=== PATIENT | male | born 1945 | race Caucasian/White ===

== ENCOUNTER 2022-01-06 17:18 | Observation (INO) ==
[2022-01-06] MEDS ORDERED: DILTIAZEM 50 MG/10 ML VIAL IV STA (18:01)
[2022-01-06] MEDS ORDERED: ASPIRIN 325 MG TABLET PO STA (18:01)
[2022-01-06] MEDS ORDERED: SODIUM CHLORIDE 0.9% 500 ML IV STA (18:01)
[2022-01-06] MEDS ORDERED: DILTIAZEM 25 MG/5 ML VIAL IV ONE (18:01)
[2022-01-06 18:09] LABS: Basophils # 0.1 10*3/uL (0.0-0.2); Basophils % 0.6 % (0.0-0.8); Eosinophils # 0.2 10*3/uL (0.0-0.87); Eosinophils % 1.4 % (0.00-10.9); Hematocrit 45.4 VOL% (42.0-52.0); Hemoglobin 14.8 GM/DL (14.0-18.0); Immature Granulocytes % 0.6 %; Immature Granulocytes Absolute 0.07 #; Lymphocytes % 7.8 % (21.2-54.2); Mean Corpuscular HGB Conc 32.6 GM/DL (32-36); Mean Corpuscular Volume 95.8 FL (87-102); Mean Platelet Volume 9.8 FL (9.6-12.0); Monocytes % 6.7 % (1.7-12.7); Neutrophils % 82.9 % (38.7-73.9); Platelet Count 364 T/CUMM (130-400); Red Blood Count 4.74 MC/CUMM (3.8-5.5); Red Cell Distribution Width 13.8 % (9.3-17.3); White Blood Count 12.5 T/CUMM (4-12)
[2022-01-06 18:16] LABS: PT Patient Result 10.9 SECS (10.5-12.0)
[2022-01-06 18:31] LABS: Albumin 2.7 G/DL (3.4-5.0); Bilirubin,Total 1.4 MG/DL (0.20-1.00); Calcium 8.7 MG/DL (8.5-10.1); Osmolality,Calculated 275.8 MOS/KG (273-304); Potassium 4.3 MMOL/L (3.5-5.1); Thyroid Stimulating Hormone 1.39 uIU/ml (0.358-3.74); Total Protein 6.7 G/DL (6.4-8.2)
[2022-01-06] MEDS ORDERED: FUROSEMIDE 20 MG/2 ML VIAL IV STA (18:37)
[2022-01-06] MEDS ORDERED: ENOXAPARIN 100 MG/ML SYRINGE SUBCUT STA (18:38)
[2022-01-06] MEDS ORDERED: ENOXAPARIN 60 MG/0.6 ML SYRINGE SUBCUT STA (18:39)
[2022-01-06] MEDS ORDERED: FUROSEMIDE 40 MG/4 ML VIAL IV STA (18:40)
[2022-01-06] MEDS ORDERED: ACETAMINOPHEN 325 MG TABLET PO PRN (19:14)
[2022-01-06] MEDS ORDERED: DEXTROSE 10% 250 ML BAG IV PRN (19:14)
[2022-01-06] MEDS ORDERED: ONDANSETRON 4 MG/2 ML VIAL IV PRN (19:14)
[2022-01-06] MEDS ORDERED: GLUCAGON 1 MG VIAL IM PRN (19:14)
[2022-01-06 20:02] LABS: Bilirubin,Urine Negative (Negative); Blood, Urine Negative (Negative); Glucose,Urine (UA) Negative (Negative); Ketones,Urine Negative (Negative); Nitrite,Urine Negative (Negative); Protein,Urine Negative; Urine Appearance Clear (Clear); Urine Color Yellow (Yellow); Urine Urobilinogen 0.2 EU/DL (<2.0)
[2022-01-06 20:11] LABS: Barbiturates Screen,Urine Negative (Negative); Benzodiazepines Screen,Urine Negative (Negative); Cannabinoid Screen,Urine Negative (Negative); Opiate Screen,Urine Negative (Negative); Phencyclidine Screen,Urine Negative (Negative)
[2022-01-06 20:17] LABS: Bacteria,Urine Occasional /HPF (Few); Hyaline Casts,Urine 1 /LPF (0-3); Mucus,Urine Occasional /LPF (Occasional); RBC,Urine 10 /HPF (0-4)
[2022-01-06] MEDS: LACTATED RINGERS 1,000 ML IV SCH (20:52)
[2022-01-06] MEDS ORDERED: DILTIAZEM 30 MG TABLET PO SCH (21:00)
[2022-01-06] MEDS: ALBUTEROL 2.5 MG/3 ML NEB RESP TX SCH (22:07)
[2022-01-07 01:40] LABS: Basophils # 0.1 10*3/uL (0.0-0.2); Basophils % 0.8 % (0.0-0.8); Eosinophils # 0.2 10*3/uL (0.0-0.87); Eosinophils % 2.3 % (0.00-10.9); Hematocrit 39.2 VOL% (42.0-52.0); Hemoglobin 13.1 GM/DL (14.0-18.0); Immature Granulocytes % 0.9 %; Immature Granulocytes Absolute 0.09 #; Lymphocytes % 10.3 % (21.2-54.2); Mean Corpuscular HGB Conc 33.4 GM/DL (32-36); Mean Corpuscular Volume 93.8 FL (87-102); Mean Platelet Volume 9.2 FL (9.6-12.0); Monocytes % 8.4 % (1.7-12.7); Neutrophils % 77.3 % (38.7-73.9); Platelet Count 333 T/CUMM (130-400); Red Blood Count 4.18 MC/CUMM (3.8-5.5); Red Cell Distribution Width 14.1 % (9.3-17.3)
[2022-01-07 02:48] LABS: Albumin 2.1 G/DL (3.4-5.0); Calcium 7.8 MG/DL (8.5-10.1); Osmolality,Calculated 283.4 MOS/KG (273-304); Potassium 3.7 MMOL/L (3.5-5.1); Risk Ratio 3.4; Total Protein 5.9 G/DL (6.4-8.2); VLDL Cholesterol 16.8 MG/DL
[2022-01-07] MEDS: ALBUTEROL 2.5 MG/3 ML NEB RESP TX SCH ×3 (06:46→11:08)
[2022-01-07] MEDS ORDERED: APIXABAN 5 MG TABLET PO SCH ×2 (09:00)
[2022-01-07] MEDS ORDERED: PANTOPRAZOLE 40 MG TABLET PO SCH (09:00)
[2022-01-07] MEDS ORDERED: ASPIRIN 325 MG TABLET PO SCH (09:00)
[2022-01-07] MEDS ORDERED: METOPROLOL TARTRATE 25 MG TABLET PO SCH (09:00)
[2022-01-07] MEDS ORDERED: DILTIAZEM CD 120 MG CAPSULE PO SCH (09:00)
[2022-01-07] MEDS ORDERED: ENOXAPARIN 40 MG/0.4 ML SYRINGE SUBCUT SCH (09:00)
[2022-01-07] MEDS: LACTATED RINGERS 1,000 ML IV SCH (10:30)
[2022-01-07 12:13] VITALS: BP 122/67
[2022-01-08] MEDS ORDERED: ASPIRIN EC 81 MG TABLET PO SCH (09:00)
== END 2022-01-07 12:53 | disposition home or self-care (01) ==
LOC: N.EDINP 17:18 → N.ED 17:18 → N.5E 21:14
PROVIDERS: ADMIT Internal Medicine; ATTEND Internal Medicine

== ENCOUNTER 2022-07-09 00:09 | Inpatient (IN) ==
[2022-07-09] MEDS ORDERED: ONDANSETRON 4 MG/2 ML VIAL IV STA (01:04)
[2022-07-09] MEDS ORDERED: methylPREDNISolone SOD SUC 125 MG/2 ML VIAL IV STA (01:04)
[2022-07-09] MEDS ORDERED: ALBUTEROL/IPRATROPIUM 3 ML NEB RESP TX STA (01:04)
[2022-07-09 01:30] LABS: Arterial Base Excess iSTAT 3 MMOL/L (-2.5-2.5); Arterial Bicarbonate iSTAT 26.5 MMOL/L (20-26); Arterial O2 Saturation iSTAT 90 % (95-100); Arterial PCO2 iSTAT 36 MM HG (35-48); Arterial PO2 iSTAT 53 MM HG (80-95); Arterial Total CO2 iSTAT 28 MMO/L (23-27); Arterial pH iSTAT 7.472 (7.35-7.45)
[2022-07-09 01:52] LABS: Basophils % 0.1 % (0.0-0.8); Hematocrit 41.5 VOL% (42.0-52.0); Hemoglobin 13.9 GM/DL (14.0-18.0); Immature Granulocytes % 0.9 %; Immature Granulocytes Absolute 0.25 #; Lymphocytes # 0.4 10*3/uL (1.4-4.0); Lymphocytes % 1.4 % (21.2-54.2); Mean Corpuscular HGB Conc 33.5 GM/DL (32-36); Mean Corpuscular Volume 88.9 FL (87-102); Mean Platelet Volume 9.1 FL (9.6-12.0); Monocytes # 1.6 10*3/uL (0.11-0.8); Monocytes % 5.7 % (1.7-12.7); Neutrophils % 91.9 % (38.7-73.9); Platelet Count 501 T/CUMM (130-400); Red Blood Count 4.67 MC/CUMM (3.8-5.5); Red Cell Distribution Width 14.8 % (9.3-17.3); White Blood Count 27.5 T/CUMM (4-12)
[2022-07-09] MEDS ORDERED: PIPERACILLIN/TAZOBACTAM 3,375 MG in SODIUM CHLORIDE 0.9% 100 ML IV STA (02:03)
[2022-07-09 02:11] LABS: Platelet Estimate Increased; Total Cells Counted 100
[2022-07-09 02:21] LABS: Alanine Aminotransferase < 9 U/L (16-61); Albumin 1.9 G/DL (3.4-5.0); Alkaline Phosphatase 141 U/L (45-117); Aspartate Amino Transferase 14 U/L (0-37); Blood Urea Nitrogen 26 MG/DL (7-18); Calcium 9.1 MG/DL (8.5-10.1); Carbon Dioxide 24 MMOL/L (21-32); Chloride 94 MMOL/L (98-107); Glucose 95 MG/DL (74-106); Osmolality,Calculated 262.9 MOS/KG (273-304); Potassium 3.6 MMOL/L (3.5-5.1); Sodium 129 MMOL/L (136-145); Total Protein 6.9 G/DL (6.4-8.2)
[2022-07-09] MEDS ORDERED: ZALEPLON 5 MG CAPSULE PO PRN (02:25)
[2022-07-09] MEDS ORDERED: ACETAMINOPHEN 325 MG TABLET PO PRN (02:25)
[2022-07-09] MEDS ORDERED: ONDANSETRON 4 MG/2 ML VIAL IV PRN (02:25)
[2022-07-09] MEDS ORDERED: ENOXAPARIN 40 MG/0.4 ML SYRINGE SUBCUT SCH (02:30)
[2022-07-09] MEDS ORDERED: SODIUM CHLORIDE 0.9% 1,000 ML IV SCH (04:00)
[2022-07-09] MEDS: AZITHROMYCIN INJ 500 MG in SODIUM CHLORIDE 0.9% 250 ML IV SCH (04:24)
[2022-07-09] MEDS: ALBUTEROL/IPRATROPIUM 3 ML NEB RESP TX SCH ×2 (07:00→18:57)
[2022-07-09 07:38] LABS: Bacteria,Urine Many /HPF (Few); Bilirubin,Urine Negative (Negative); Blood, Urine Trace mg/dL (Negative); Glucose,Urine (UA) Negative (Negative); Ketones,Urine 40 mg/dL (Negative); Mucus,Urine Few /LPF (Occasional); Nitrite,Urine Negative (Negative); Protein,Urine Trace mg/dL (Negative); RBC,Urine 1 /HPF (0-4); Urine Appearance Clear (Clear); Urine Color Yellow (Yellow); Urine pH 5.5 (4.5-8.0)
[2022-07-09] MEDS: PANTOPRAZOLE 40 MG TABLET PO SCH (09:33)
[2022-07-09] MEDS ORDERED: cefTRIAXone 1,000 MG in SODIUM CHLORIDE 0.9% 100 ML IV SCH (10:00)
[2022-07-09 10:26] LABS: Total Protein (Chem) 6.9 G/DL (6.4-8.3)
[2022-07-09 10:40] LABS: Albumin (SPE) 2.9 G/DL (3.2-5.3); Alpha 1 (SPE) 0.3 G/DL (0.1-0.4); Alpha 1 (SPE) Rel % 4.3 %; Alpha 2 (SPE) 1.1 G/DL (0.4-1.0); Alpha 2 (SPE) Rel % 15.4 %; Beta (SPE) 0.9 G/DL (0.5-1.1); Beta (SPE) Rel % 13.5 %; Gamma (SPE) 1.7 G/DL (0.7-1.7); Gamma (SPE) Rel % 24.8 %
[2022-07-09] MEDS: PIPERACILLIN/TAZOBACTAM 3,375 MG in SODIUM CHLORIDE 0.9% 100 ML IV SCH ×2 (13:02→20:55)
[2022-07-09] MEDS: DILTIAZEM 30 MG TABLET PO SCH (20:54)
[2022-07-09] MEDS: APIXABAN 2.5 MG TABLET PO SCH (20:54)
[2022-07-10] MEDS: ALBUTEROL/IPRATROPIUM 3 ML NEB RESP TX SCH ×4 (00:53→19:05)
[2022-07-10] MEDS: PIPERACILLIN/TAZOBACTAM 3,375 MG in SODIUM CHLORIDE 0.9% 100 ML IV SCH ×3 (04:45→20:04)
[2022-07-10 06:01] LABS: Basophils % 0.1 % (0.0-0.8); Hematocrit 36.5 VOL% (42.0-52.0); Hemoglobin 11.9 GM/DL (14.0-18.0); Immature Granulocytes % 1.4 %; Immature Granulocytes Absolute 0.32 #; Lymphocytes # 0.2 10*3/uL (1.4-4.0); Mean Corpuscular HGB Conc 32.6 GM/DL (32-36); Mean Corpuscular Volume 90.6 FL (87-102); Mean Platelet Volume 9.5 FL (9.6-12.0); Monocytes # 0.9 10*3/uL (0.11-0.8); Monocytes % 3.9 % (1.7-12.7); Neutrophils % 93.6 % (38.7-73.9); Platelet Count 486 T/CUMM (130-400); Red Blood Count 4.03 MC/CUMM (3.8-5.5); Red Cell Distribution Width 15.2 % (9.3-17.3); White Blood Count 23.4 T/CUMM (4-12)
[2022-07-10 06:22] LABS: Calcium 8.7 MG/DL (8.5-10.1); Potassium 3.2 MMOL/L (3.5-5.1)
[2022-07-10 06:23] LABS: Lymphocytes 2 % (20-55); Platelet Estimate Adequate; Total Cells Counted 100
[2022-07-10] MEDS: POTASSIUM CHLORIDE 20 MEQ TABLET PO PRN ×4 (08:15→16:09)
[2022-07-10] MEDS: AZITHROMYCIN INJ 500 MG in SODIUM CHLORIDE 0.9% 250 ML IV SCH (08:15)
[2022-07-10] MEDS: PANTOPRAZOLE 40 MG TABLET PO SCH (08:15)
[2022-07-10] MEDS: APIXABAN 2.5 MG TABLET PO SCH ×2 (08:15→20:01)
[2022-07-10] MEDS: ASPIRIN CHEW 81 MG TABLET PO SCH (08:15)
[2022-07-10] MEDS: THEOPHYLLINE ER (24 HR) 400 MG CAPSULE PO SCH (08:15)
[2022-07-10] MEDS: DILTIAZEM 30 MG TABLET PO SCH ×2 (08:15→20:01)
[2022-07-11] MEDS: ALBUTEROL/IPRATROPIUM 3 ML NEB RESP TX SCH ×4 (00:18→19:29)
[2022-07-11] MEDS: PIPERACILLIN/TAZOBACTAM 3,375 MG in SODIUM CHLORIDE 0.9% 100 ML IV SCH (05:53)
[2022-07-11 07:34] LABS: Calcium 9.2 MG/DL (8.5-10.1); Osmolality,Calculated 285.4 MOS/KG (273-304); Potassium 4.5 MMOL/L (3.5-5.1)
[2022-07-11] MEDS: THEOPHYLLINE ER (24 HR) 400 MG CAPSULE PO SCH (08:05)
[2022-07-11] MEDS: APIXABAN 2.5 MG TABLET PO SCH ×2 (08:05→20:27)
[2022-07-11] MEDS: DILTIAZEM 30 MG TABLET PO SCH ×2 (08:05→20:27)
[2022-07-11] MEDS: predniSONE 20 MG TABLET PO SCH (08:05)
[2022-07-11] MEDS: PANTOPRAZOLE 40 MG TABLET PO SCH (08:05)
[2022-07-11] MEDS: ASPIRIN CHEW 81 MG TABLET PO SCH (08:05)
[2022-07-11] MEDS: AZITHROMYCIN INJ 500 MG in SODIUM CHLORIDE 0.9% 250 ML IV SCH ×2 (10:03→10:18)
[2022-07-11] MEDS ORDERED: AZITHROMYCIN 250 MG TABLET PO ONE (10:04)
[2022-07-11 11:14] LABS: Total Protein 24 Hr Ur Result 212 MG/24HR (0-149.1); Total Volume,Urine 400 ML (400-2000)
[2022-07-11] MEDS ORDERED: LORATADINE 10 MG TABLET PO ONE (17:06)
[2022-07-11] MEDS: cefTRIAXone 2,000 MG in SODIUM CHLORIDE 0.9% 100 ML IV SCH (17:13)
[2022-07-11] MEDS: FLUTICASONE 50 MCG NASAL SPRAY 16 GM BOTTLE BOTH NARES SCH (20:27)
[2022-07-12] MEDS: ALBUTEROL/IPRATROPIUM 3 ML NEB RESP TX SCH ×4 (00:27→19:30)
[2022-07-12 06:17] LABS: Basophils % 0.3 % (0.0-0.8); Hematocrit 36.5 VOL% (42.0-52.0); Hemoglobin 11.9 GM/DL (14.0-18.0); Immature Granulocytes % 5.2 %; Immature Granulocytes Absolute 0.78 #; Lymphocytes # 0.5 10*3/uL (1.4-4.0); Lymphocytes % 3.4 % (21.2-54.2); Mean Corpuscular HGB Conc 32.6 GM/DL (32-36); Mean Corpuscular Volume 91.3 FL (87-102); Mean Platelet Volume 9.4 FL (9.6-12.0); Monocytes # 0.8 10*3/uL (0.11-0.8); Monocytes % 5.4 % (1.7-12.7); Neutrophils % 85.7 % (38.7-73.9); Platelet Count 490 T/CUMM (130-400); Red Cell Distribution Width 15.5 % (9.3-17.3); White Blood Count 14.9 T/CUMM (4-12)
[2022-07-12 06:34] LABS: Calcium 8.7 MG/DL (8.5-10.1); Osmolality,Calculated 276.8 MOS/KG (273-304); Potassium 4.1 MMOL/L (3.5-5.1)
[2022-07-12 06:40] LABS: Lymphocytes 5 % (20-55); Platelet Estimate Adequate; Total Cells Counted 100
[2022-07-12 07:30] LABS: 24 Hr Protein (Bench) 212 MG/24HR (0-149.1)
[2022-07-12] MEDS: APIXABAN 2.5 MG TABLET PO SCH ×2 (08:48→21:03)
[2022-07-12] MEDS: BACILLUS COAGULANS CAPLET PO SCH (08:48)
[2022-07-12] MEDS: LORATADINE 10 MG TABLET PO SCH (08:48)
[2022-07-12] MEDS: predniSONE 20 MG TABLET PO SCH (08:48)
[2022-07-12] MEDS: PANTOPRAZOLE 40 MG TABLET PO SCH (08:48)
[2022-07-12] MEDS: THEOPHYLLINE ER (24 HR) 400 MG CAPSULE PO SCH (08:48)
[2022-07-12] MEDS: AZITHROMYCIN 250 MG TABLET PO SCH (08:48)
[2022-07-12] MEDS: DILTIAZEM 30 MG TABLET PO SCH ×2 (08:48→21:03)
[2022-07-12] MEDS: ASPIRIN CHEW 81 MG TABLET PO SCH (08:48)
[2022-07-12] MEDS: FLUTICASONE 50 MCG NASAL SPRAY 16 GM BOTTLE BOTH NARES SCH ×3 (10:44→21:10)
[2022-07-12] MEDS: cefTRIAXone 2,000 MG in SODIUM CHLORIDE 0.9% 100 ML IV SCH (17:03)
[2022-07-13] MEDS: ALBUTEROL/IPRATROPIUM 3 ML NEB RESP TX SCH ×4 (00:15→19:08)
[2022-07-13 06:08] LABS: Basophils % 0.2 % (0.0-0.8); Hematocrit 35.3 VOL% (42.0-52.0); Hemoglobin 11.6 GM/DL (14.0-18.0); Immature Granulocytes % 4.6 %; Immature Granulocytes Absolute 0.81 #; Lymphocytes # 0.5 10*3/uL (1.4-4.0); Mean Corpuscular HGB Conc 32.9 GM/DL (32-36); Mean Corpuscular Volume 90.3 FL (87-102); Mean Platelet Volume 9.4 FL (9.6-12.0); Monocytes # 1.1 10*3/uL (0.11-0.8); Neutrophils % 86.2 % (38.7-73.9); Platelet Count 492 T/CUMM (130-400); Red Blood Count 3.91 MC/CUMM (3.8-5.5); Red Cell Distribution Width 15.4 % (9.3-17.3); White Blood Count 17.5 T/CUMM (4-12)
[2022-07-13 06:28] LABS: Calcium 8.8 MG/DL (8.5-10.1); Osmolality,Calculated 272.1 MOS/KG (273-304); Potassium 4.2 MMOL/L (3.5-5.1)
[2022-07-13 07:29] LABS: Lymphocytes 4 % (20-55); Myelocytes 1 %; Platelet Estimate Increased; Total Cells Counted 100
[2022-07-13] MEDS: LORATADINE 10 MG TABLET PO SCH (09:40)
[2022-07-13] MEDS: ASPIRIN CHEW 81 MG TABLET PO SCH (09:40)
[2022-07-13] MEDS: APIXABAN 2.5 MG TABLET PO SCH ×2 (09:40→21:39)
[2022-07-13] MEDS: BACILLUS COAGULANS CAPLET PO SCH (09:40)
[2022-07-13] MEDS: AZITHROMYCIN 250 MG TABLET PO SCH (09:40)
[2022-07-13] MEDS: predniSONE 20 MG TABLET PO SCH (09:40)
[2022-07-13] MEDS: PANTOPRAZOLE 40 MG TABLET PO SCH (09:40)
[2022-07-13] MEDS: DILTIAZEM 30 MG TABLET PO SCH ×2 (09:40→21:40)
[2022-07-13] MEDS: THEOPHYLLINE ER (24 HR) 400 MG CAPSULE PO SCH (09:40)
[2022-07-13] MEDS: FLUTICASONE 50 MCG NASAL SPRAY 16 GM BOTTLE BOTH NARES SCH ×2 (09:43→21:40)
[2022-07-13] MEDS: MULTIVITAMIN (CENTRUM) TABLET PO SCH (16:52)
[2022-07-13] MEDS: cefTRIAXone 1,000 MG in SODIUM CHLORIDE 0.9% 100 ML IV SCH (17:12)
[2022-07-13] MEDS: TAMSULOSIN 0.4 MG CAPSULE PO SCH (21:39)
[2022-07-14] MEDS: ALBUTEROL/IPRATROPIUM 3 ML NEB RESP TX SCH ×4 (00:24→19:35)
[2022-07-14 06:50] LABS: Basophils # 0.1 10*3/uL (0.0-0.2); Basophils % 0.3 % (0.0-0.8); Hematocrit 34.9 VOL% (42.0-52.0); Hemoglobin 11.6 GM/DL (14.0-18.0); Immature Granulocytes % 3.8 %; Immature Granulocytes Absolute 0.89 #; Lymphocytes # 0.6 10*3/uL (1.4-4.0); Lymphocytes % 2.7 % (21.2-54.2); Mean Corpuscular HGB Conc 33.2 GM/DL (32-36); Mean Corpuscular Volume 89.7 FL (87-102); Mean Platelet Volume 9.5 FL (9.6-12.0); Monocytes # 1.5 10*3/uL (0.11-0.8); Monocytes % 6.3 % (1.7-12.7); Neutrophils % 86.9 % (38.7-73.9); Platelet Count 474 T/CUMM (130-400); Red Blood Count 3.89 MC/CUMM (3.8-5.5); Red Cell Distribution Width 15.3 % (9.3-17.3); White Blood Count 23.2 T/CUMM (4-12)
[2022-07-14 07:12] LABS: Calcium 8.6 MG/DL (8.5-10.1); Osmolality,Calculated 268.4 MOS/KG (273-304)
[2022-07-14 07:42] LABS: Metamyelocytes 1 %; Total Cells Counted 100
[2022-07-14 07:43] LABS: Platelet Estimate Increased; Schistocytes Slight
[2022-07-14] MEDS: FLUTICASONE 50 MCG NASAL SPRAY 16 GM BOTTLE BOTH NARES SCH ×2 (08:35→21:42)
[2022-07-14] MEDS: DILTIAZEM 30 MG TABLET PO SCH ×2 (08:35→21:41)
[2022-07-14] MEDS: ASPIRIN CHEW 81 MG TABLET PO SCH (08:36)
[2022-07-14] MEDS: BACILLUS COAGULANS CAPLET PO SCH (08:36)
[2022-07-14] MEDS: THEOPHYLLINE ER (24 HR) 400 MG CAPSULE PO SCH (08:36)
[2022-07-14] MEDS: predniSONE 20 MG TABLET PO SCH ×2 (08:36→21:41)
[2022-07-14] MEDS: MULTIVITAMIN (CENTRUM) TABLET PO SCH (08:37)
[2022-07-14] MEDS: PANTOPRAZOLE 40 MG TABLET PO SCH (08:37)
[2022-07-14] MEDS: APIXABAN 2.5 MG TABLET PO SCH ×2 (08:37→21:41)
[2022-07-14] MEDS: LORATADINE 10 MG TABLET PO SCH (08:37)
[2022-07-14] MEDS: FINASTERIDE 5 MG TABLET PO SCH (08:40)
[2022-07-14] MEDS: AZITHROMYCIN INJ 500 MG in SODIUM CHLORIDE 0.9% 250 ML IV SCH (15:54)
[2022-07-14] MEDS: cefTRIAXone 1,000 MG in SODIUM CHLORIDE 0.9% 100 ML IV SCH (16:01)
[2022-07-14] MEDS: TAMSULOSIN 0.4 MG CAPSULE PO SCH (21:41)
[2022-07-15] MEDS: ALBUTEROL/IPRATROPIUM 3 ML NEB RESP TX SCH ×4 (00:40→19:02)
[2022-07-15 06:39] LABS: Basophils # 0.1 10*3/uL (0.0-0.2); Basophils % 0.3 % (0.0-0.8); Hematocrit 34.5 VOL% (42.0-52.0); Hemoglobin 11.6 GM/DL (14.0-18.0); Immature Granulocytes Absolute 1.08 #; Lymphocytes # 0.5 10*3/uL (1.4-4.0); Lymphocytes % 1.7 % (21.2-54.2); Mean Corpuscular HGB Conc 33.6 GM/DL (32-36); Mean Corpuscular Volume 88.7 FL (87-102); Mean Platelet Volume 9.5 FL (9.6-12.0); Monocytes # 1.4 10*3/uL (0.11-0.8); Monocytes % 5.3 % (1.7-12.7); NRBC # 0.02 10*3/uL; Neutrophils % 88.7 % (38.7-73.9); Platelet Count 446 T/CUMM (130-400); Red Blood Count 3.89 MC/CUMM (3.8-5.5); Red Cell Distribution Width 15.2 % (9.3-17.3); White Blood Count 26.7 T/CUMM (4-12)
[2022-07-15 06:56] LABS: Calcium 8.4 MG/DL (8.5-10.1); Osmolality,Calculated 271.2 MOS/KG (273-304); Potassium 4.1 MMOL/L (3.5-5.1)
[2022-07-15 07:02] LABS: Hypochromia Slight; Lymphocytes 1 % (20-55); Microcytosis Slight; Platelet Estimate Adequate; Total Cells Counted 100
[2022-07-15] MEDS: BACILLUS COAGULANS CAPLET PO SCH (08:47)
[2022-07-15] MEDS: MULTIVITAMIN (CENTRUM) TABLET PO SCH (08:47)
[2022-07-15] MEDS: FINASTERIDE 5 MG TABLET PO SCH (08:47)
[2022-07-15] MEDS: DILTIAZEM 30 MG TABLET PO SCH ×2 (08:47→20:56)
[2022-07-15] MEDS: predniSONE 20 MG TABLET PO SCH ×3 (08:48→20:56)
[2022-07-15] MEDS: LORATADINE 10 MG TABLET PO SCH (08:48)
[2022-07-15] MEDS: APIXABAN 2.5 MG TABLET PO SCH ×2 (08:48→20:56)
[2022-07-15] MEDS: ASPIRIN CHEW 81 MG TABLET PO SCH (08:48)
[2022-07-15] MEDS: THEOPHYLLINE ER (24 HR) 400 MG CAPSULE PO SCH (08:48)
[2022-07-15] MEDS: PANTOPRAZOLE 40 MG TABLET PO SCH (08:48)
[2022-07-15] MEDS: FLUTICASONE 50 MCG NASAL SPRAY 16 GM BOTTLE BOTH NARES SCH ×2 (08:50→20:57)
[2022-07-15] MEDS: AZITHROMYCIN INJ 500 MG in SODIUM CHLORIDE 0.9% 250 ML IV SCH (16:03)
[2022-07-15] MEDS: cefTRIAXone 1,000 MG in SODIUM CHLORIDE 0.9% 100 ML IV SCH (17:21)
[2022-07-15] MEDS: TAMSULOSIN 0.4 MG CAPSULE PO SCH (20:56)
[2022-07-16] MEDS: ALBUTEROL/IPRATROPIUM 3 ML NEB RESP TX SCH ×3 (00:01→14:15)
[2022-07-16 05:59] LABS: Basophils % 0.2 % (0.0-0.8); Hematocrit 32.7 VOL% (42.0-52.0); Hemoglobin 10.6 GM/DL (14.0-18.0); Immature Granulocytes % 5.1 %; Immature Granulocytes Absolute 1.05 #; Lymphocytes # 0.4 10*3/uL (1.4-4.0); Lymphocytes % 1.8 % (21.2-54.2); Mean Corpuscular HGB Conc 32.4 GM/DL (32-36); Mean Corpuscular Volume 90.1 FL (87-102); Mean Platelet Volume 9.8 FL (9.6-12.0); Monocytes % 4.7 % (1.7-12.7); Neutrophils % 88.2 % (38.7-73.9); Platelet Count 399 T/CUMM (130-400); Red Blood Count 3.63 MC/CUMM (3.8-5.5); Red Cell Distribution Width 15.3 % (9.3-17.3); White Blood Count 20.7 T/CUMM (4-12)
[2022-07-16 06:28] LABS: Lymphocytes 1 % (20-55); Nucleated Red Blood Cells 1 /100 WBC (0-5); Platelet Estimate Adequate; Total Cells Counted 100
[2022-07-16] MEDS: ASPIRIN CHEW 81 MG TABLET PO SCH (09:20)
[2022-07-16] MEDS: APIXABAN 2.5 MG TABLET PO SCH (09:20)
[2022-07-16] MEDS: BACILLUS COAGULANS CAPLET PO SCH (09:20)
[2022-07-16] MEDS: predniSONE 20 MG TABLET PO SCH ×2 (09:21→15:08)
[2022-07-16] MEDS: MULTIVITAMIN (CENTRUM) TABLET PO SCH (09:21)
[2022-07-16] MEDS: FINASTERIDE 5 MG TABLET PO SCH (09:21)
[2022-07-16] MEDS: LORATADINE 10 MG TABLET PO SCH (09:21)
[2022-07-16] MEDS: THEOPHYLLINE ER (24 HR) 400 MG CAPSULE PO SCH (09:21)
[2022-07-16] MEDS: DILTIAZEM 30 MG TABLET PO SCH (09:21)
[2022-07-16] MEDS: PANTOPRAZOLE 40 MG TABLET PO SCH (09:22)
[2022-07-16] MEDS: FLUTICASONE 50 MCG NASAL SPRAY 16 GM BOTTLE BOTH NARES SCH (09:35)
[2022-07-16 12:17] VITALS: BP 123/72
== END 2022-07-16 15:36 | disposition home or self-care (01) | DRG 190 ==
LOC: N.ED 00:09 → N.EDINP 02:25 → SUATTDRO 02:25 → N.5E 13:09
PROVIDERS: ADMIT Hospitalist; ATTEND Internal Medicine